=== PATIENT | female | born 1985 | race Caucasian/White ===

== ENCOUNTER 2017-09-20 00:35 | Emergency (ER) | payer MEDICARE ==
[2017-09-20 00:56] VITALS: PULSE 79
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
[2017-09-20 02:27] VITALS: BP 115/61; O2SAT 98
== END 2017-09-20 02:30 | disposition home or self-care (01) ==
LOC: ED 00:35
DX: Z59.0 Homelessness (principal); R07.9 Chest pain, unspecified; R06.02 Shortness of breath
CPT/HCPCS: 99283